=== PATIENT | female | born 1955 | race Caucasian/White ===

== ENCOUNTER → 2017-11-23 14:26 | Outpatient (CLI) | payer OTHER, SELFPAY ==
--- NOTE | 2017-11-23 14:32 | BI_ITS ---
MAMMOGRAPHY - BILATERAL SCREENING 3-D KACY SYNTHESIS REASON FOR EXAM: Female, 62 years old. Bilateral Screening 3-D tomosynthesis PERTINENT HISTORY: No significant family history. TECHNIQUE: 2-D mammograms and 3-D Kacy synthesis of the breast (s) were performed. CAD was performed. COMPARISON: November 08, 2016, November 05, 2015 FINDINGS: The breast composition is composed of scattered fibroglandular density. Scattered benign calcifications are seen. No dense spiculated masses or suspicious microcalcifications are identified. No architectural distortion is identified. There is no skin thickening or retraction. There has been no significant change since the prior study. BI/SCREENING MAMM (CAD), BILAT IMPRESSION: No mammographic signs of malignancy. Routine yearly mammograms recommended. ASSESSMENT CATEGORY: BIRADS Category 2: Benign. A letter regarding these results will be sent to the patient by the facility within 30 days. FOLLOW UP RECOMMENDATION: Yearly follow up mammogram recommended. (A) Approximately 10% of breast cancers are not detected by mammography. A normal mammogram should not delay biopsy of a clinically suspicious abnormality. Electronically Signed: Kadeem No MD at 17:08 EDT , Service support ,
== END ==
PROVIDERS: Family Provider Nurse Practitioner Family; PCP Nurse Practitioner Family; Visit Provider Nurse Practitioner Family
DX: Z12.31 Encounter for screening mammogram for malignant neoplasm of breast (principal)
CPT/HCPCS: 77063; 77067

== ENCOUNTER → 2019-02-18 14:27 | Outpatient (CLI) | payer OTHER, SELFPAY ==
--- NOTE | 2019-02-18 14:31 | BI_ITS ---
MAMMOGRAPHY - BILATERAL SCREENING REASON FOR EXAM: Female, 63 years old. Routine annual screening examination. PERTINENT HISTORY: Sister with breast cancer. Aunt with breast cancer. TECHNIQUE: Digital bilateral breast kacy (3D mammographic acquisition) in the CC and MLO projections. 2-D mediolateral oblique (MLO) and craniocaudad (CC) views of both breasts were obtained. CAD: Full Field Digital Mammography with Computer Added Detection was performed. COMPARISON: Comparison is made with prior study dated November 23, 2017 and November 08, 2016. FINDINGS: Breast Composition: The breasts are extremely dense, which lowers the sensitivity of mammography. There are no dominant masses or suspicious calcifications. Stable 1.3 cm lymph node in the left axillary region. No other significant abnormalities are identified. There has been no significant change since the prior study. BI/SCREEN MAMM (CAD) W/KACY BILAT IMPRESSION: Stable bilateral screening mammogram. Yearly follow-up mammogram recommended. (A) ASSESSMENT CATEGORY: BIRADS Category 2: Benign. A letter regarding these results will be sent to the patient by the facility within 30 days. Approximately 10% of breast cancers are not detected by mammography. A normal mammogram should not delay biopsy of a clinically suspicious abnormality. [id number] Electronically Signed: Jeffrey Landa, at 15:39 EDT , Service support ,
== END ==
PROVIDERS: Family Provider Nurse Practitioner Family; PCP Nurse Practitioner Family; Referring Provider Nurse Practitioner Family; Visit Provider Nurse Practitioner Family
DX: Z12.31 Encounter for screening mammogram for malignant neoplasm of breast (principal)
CPT/HCPCS: 77063; 77067

== ENCOUNTER → 2019-04-03 10:35 | Outpatient (CLI) | payer OTHER, SELFPAY ==
--- NOTE | 2019-04-03 10:46 | BD_ITS ---
STUDY: DUAL ENERGY X-RAY ABSORPTIOMETRY / DXA REASON FOR EXAM: Female, 63 years old. The patient is postmenopausal. Loss of height. TECHNIQUE: Bone Mineral Density (BMD) measurements of lumbar spine and bilateral hips were obtained. COMPARISON: Comparison is made with prior examination of February 28, 2017. FINDINGS: Lumbar Spine (L1-L4): g/cm2 (1.028) / T-score (-1.3) / Z-score (0.1) Findings are suggestive of osteopenia with a low fracture risk. Left Femur Total: g/cm2 (0.794) / T-score (-1.7) / Z-score (-0.6) Left Femoral Neck: g/cm2 (0.806) / T-score (-1.7) / Z-score (-0.3) Right Femur Total: g/cm2 (0.819) / T-score (-1.5) / Z-score (-0.4) Right Femoral Neck: g/cm2 (0.833) / T-score (-1.5) / Z-score (-0.1) The T-Scores on the most recent prior examination were: Lumbar Spine (L1-L4): There has been worsening of bone density since the previous examination. Left Femur Total: which represents a worsening of 10.3%. Right Femur Total: which represents a worsening of 5.1%. BD/Dexa Bone Density Study IMPRESSION: The patient is considered osteopenic as outlined below according to World Demetris Organization (WHO) criteria with a moderate fracture risk. There has been worsening of bone density since the previous examination. Reference Information: The T-score is the number of standard deviations above or below the standard which is normal for young adults at their peak bone mineral density. The World Health Organization (WHO) interprets the T-scores as follows: Above -1 Normal bone density Between -1 and -2.5 Osteopenia Equal to / or below -2.5 Osteoporosis As a practical clinical guideline, osteopenia may be graded as follows: Mild -1 through -1.5 Moderate -1.6 through -2.0 Severe -2.1 through -2.4 The Z-score is the number of standard deviations above or below age-matched controls. A Z-score of less than -1.5 would be considered abnormal. References: 1. NIH Osteoporosis and Related Bone Diseases http://www.osteo.org 2. International Society for Clinical Densitometry http://www.iscd.org 3. National Osteoporosis Foundation http://www.nof.org Electronically Signed: Jeffrey Landa, at 11:21 EDT , Service support ,
== END ==
PROVIDERS: Family Provider Nurse Practitioner Family; PCP Nurse Practitioner Family; Referring Provider Nurse Practitioner Family; Visit Provider Nurse Practitioner Family
DX: Z78.0 Asymptomatic menopausal state (principal)
CPT/HCPCS: 77080

== ENCOUNTER 2020-03-10 19:18 | Emergency (ER) | payer OTHER, SELFPAY ==
[2020-03-10 19:18] VITALS: BP 170/100; PULSE 65; RESP 16; TEMP 36.3; O2SAT 97; BMI 22.6
--- NOTE | 2020-03-10 19:29 | CT_ITS ---
STUDY: CT BRAIN WITHOUT CONTRAST REASON FOR EXAM: Female, 64 years old. VALENTE TODAY/NAUSEA/SPITTING UP BLOOD RADIATION DOSAGE (If Supplied By Facility): CTDIvol = ( 44.99 ) mGy, DLP = ( 745.49 ) mGycm TECHNIQUE: Transaxial CT imaging of the brain was performed without administration of intravenous contrast material. Individualized dose optimization techniques were used for this CT. COMPARISON: No relevant priors. FINDINGS: Normal soft tissue structures. Normal calvarium. Normal size ventricles and extra-axial spaces for the patient''s age. There are areas of decreased attenuation within the white matter tracts of the supratentorial brain, consistent with microvascular disease changes. Normal age-related changes of the basal ganglia. Normal brainstem. Normal cerebellum. There is no intracranial hemorrhage. There are no findings of an acute ischemic infarction. Normal visualized paranasal sinuses. CT/Brain/Head without Contrast IMPRESSION: No CT evidence of acute infarct or hemorrhage. If there is clinical concern for hyperacute ischemia that is not evident by CT, MRI should be considered if possible. Electronically Signed: Leeroy Kim MD at 20:08 EDT Tel , Service support ,
[2020-03-10 19:49] LABS: Absolute Lymphocyte Count 1.76 X10^3/uL (0.83-4.51); Absolute Neutrophil Count 4.5 X10^3/uL (2.0-7.7); Basophil# 0.07 X10^3/uL; Eosinophil# 0.26 X10^3/uL; Eosinophils% 3.6 % (0-5); Hematocrit 40.4 % (37-47); Hemoglobin 13.6 g/dL (12.0-15.0); Lymphocyte # 1.76 X10^3/ul (4.0); Lymphocyte % 24.4 % (19-41); Mean Corp Hgb Conc 33.7 g/dL (32-36); Mean Corpuscular Hgb 31.8 pg (27.0-32.0); Mean Corpuscular Volume 94.4 fL (81-99); Mean Platelet Vol. 9.7 fl (6.2-12.0); Monocyte# 0.66 X10^3/uL; Monocyte% 9.1 % (0-10); NRBC Flagged by Analyzer 0 % (0-5); Neutrophil # 4.46 X10^3/uL (2.7-7.7); Neutrophil % 61.8 % (47-70); Platelet Count 216 K/mm3 (150-450); RBC Distribution Width CV 12.3 % (11.6-14.6); RBC Distribution Width SD 42.7 fl (35.1-43.9); Red Blood Count 4.28 M/mm3 (4.2-5.4); White Blood Count 7.2 K/mm3 (4.4-11.0)
[2020-03-10] MEDS: Ondansetron 4 MG/2 ML Vial IV (19:51)
[2020-03-10 20:07] LABS: ALB/GLOB Ratio 1.2 RATIO (0.9-2.4); AST(SGOT) 15 U/L (15-37); Alanine Aminotransfer ALT/SGPT 20 U/L (13-56); Albumin, Serum 3.5 g/dL (3.2-5.0); Alkaline Phosphatase 81 U/L (45-117); Anion Gap 2 (5-15); BUN 13 mg/dL (7-18); BUN/Creat Ratio 12.6 RATIO (10-20); Calcium,Total 9.5 mg/dL (8.5-10.1); Chloride 109 mmol/L (98-107); Creatinine, Serum 1.03 mg/dL (0.55-1.02); EST Glomerular Filtration Rate 57 mL/min (>60); Est Glom Filt Rate - Afr Amer 70 mL/min (>60); Estimated Creatinine Clearance 52.34 ml/min; Globulin 2.9 g/dL (2.2-4.2); Glucose 115 mg/dL (74-106); Potassium 3.9 mmol/L (3.5-5.1); Protein, Total 6.4 g/dL (6.4-8.2); Sodium Level 142 mmol/L (136-145)
--- NOTE | 2020-03-10 20:32 | ED.DCSUM_ITS ---
History of Present Illness Chief Complaint: Headache Informant: Patient Onset: Today Context: Gradual Onset Timing: Intermittent Current Severity: Moderate Maximum Severity: Moderate Narrative: Patient is an otherwise healthy 64-year-old female who presents to the emergency department with facial congestion, headache, and one episode of spitting up blood. She states that today, she had a frontal headache. She states that she is been dealing with some allergies for the past 2 days. She is not had fever or chills. She states that she was having a lot of drainage and felt nauseated. She states she went to the bathroom as if she was going to vomit, but then spit up blood. She describes it as bright red. There was no vomiting. She states it was one time. She said no change in bowel habits. She did have colonoscopy and endoscopy 7 years ago which were unremarkable. Prior similar symptoms: No Recent Illness/Hospitalization: No Past Medical History - Allergies and Home Meds Allergies/Adverse Reactions: Allergies nickel [Nickel] Allergy (Verified 01/15/14 11:24) Rash prednisone Allergy (Verified 01/15/14 11:24) Unknown ibuprofen Adverse Reaction (Verified 01/28/14 07:00) Other RECOMMENDED NOT TO TAKE DUE TO ONLY HAVING 1 KIDNEY Primary Care Physician: Aníbal Larry OCCUPATIONAL THERAPY INSTRUCTOR, OCCUPATIONAL THERAPY INSTRUCTOR-C [Primary Care Provider] - Prior records reviewed: Yes Past Medical History: - - GERD Surgical History: noncontributory Smoking Status: Former smoker Review of Systems General: Denies: Chills, Fever, Sweats Eyes: Denies: Visual changes - bilaterally, Diplopia ENT: Reports: Rhinorrhea. Denies: Sore throat Cardiovascular: Denies: Chest pain, Palpitations Respiratory: Denies: Dyspnea, Cough, Dyspnea on exertion Gastrointestinal: Reports: Nausea. Denies: Abdominal pain, Vomiting, Diarrhea, Melena, Hematochezia Genitourinary: Denies: Dysuria, Hematuria, Frequency Musculoskeletal: Denies: Back pain, Extremity Pain Skin: Denies: Rash, Wounds Neurological: Denies: Headache, Weakness, Numbness Physical Exam Vital Signs/Narrative: Vital Signs Temp Pulse Resp BP Pulse Ox 03/10/20 19:18 97.4 F L 65 16 170/100 H 97 Inital Vital Signs reviewed: Yes General: Well nourished, Well developed, No Acute Distress Head: Normocephalic, Atraumatic Eyes: Perrl, EOMI ENT: Moist mucous membranes, No rhinorrhea, Nasal congestion, - - Bilateral turbinates are erythematous. There is stigmata of recent bleeding from the left. There is no posterior bleeding. Neck: Supple, Nontender Cardiovascular: Regular rate, Regular rhythm, No murmurs Respiratory: No distress, CTA bilaterally, Chest nontender Abdomen: Soft, Nontender, Nondistended, Normal bowel sounds Back: Nontender, Normal Inspection Extremities: Nontender, No edema Skin: Normal color, No rash Neurological: Alert, Oriented x3, Cranial nerves II-XII grossly intact, Normal Strength, Normal Sensation Psychological: Normal affect, Normal Mood Diagnostic/Tx/Re-eval Clinical Impression(s) from Imaging Studies Brain CT 03/10/20 19:29 IMPRESSION: No CT evidence of acute infarct or hemorrhage. If there is clinical concern for hyperacute ischemia that is not evident by CT, MRI should be considered if possible. Electronically Signed: Leeroy Kim MD at 20:08 EDT Tel , Service support , Abnormal Lab Results 03/10/20 03/10/20 19:40 19:40 WBC 7.2 RBC 4.28 Hgb 13.6 Hct 40.4 MCV 94.4 MCH 31.8 MCHC 33.7 RDW Std Deviation 42.7 RDW Coeff of Caro 12.3 Plt Count 216 MPV 9.7 Immature Gran % (Auto) 0.100 Neut % (Auto) 61.8 Lymph % (Auto) 24.4 Reynolds % (Auto) 9.1 Eos % (Auto) 3.6 Baso % (Auto) 1.0 Absolute Neuts (auto) 4.5 Absolute Lymphs (auto) 1.76 Nucleated RBC % 0 Sodium 142 Potassium 3.9 Chloride 109 H Carbon Dioxide 31.0 Anion Gap 2 L BUN 13 Creatinine 1.03 H Estim Creat Clear Calc 52.34 Est GFR (MDRD) Af Amer 70 Est GFR (MDRD) Non-Af 57 L BUN/Creatinine Ratio 12.6 Glucose 115 H Calcium 9.5 Total Bilirubin 0.30 AST 15 ALT 20 Alkaline Phosphatase 81 Total Protein 6.4 Albumin 3.5 Globulin 2.9 Albumin/Globulin Ratio 1.2 - Medical Decision Making The patient presents with frontal headache, nausea, and one episode of spitting up blood. My suspicion is this is likely from the oropharynx. She does have stigmata of recent bleeding from the left nares. She has not had similar headache, I did obtain noncontrast head CT. This was unremarkable. The patient has no further episodes. Her labs are unremarkable. She is feeling improved. At this point, she will continue her antihistamines. I will add Zofran for nausea control. She was counseled on concerning symptoms and reasons to return. She will be discharged home. Impression 1. Sinus headache 2. Epistaxis resolved ED Disposition - Plan for ED Patient: Instructions: Nosebleed, ED Headache Sinus Prescriptions: Prednisone [Deltasone] 40 mg PO DAILY #10 tab Prescription Printed Ondansetron [Zofran Odt] 4 mg PO Q8H PRN PRN #10 tab PRN Reason: Nausea Prescription Printed Referrals: Aníbal Larry NP, OCCUPATIONAL THERAPY INSTRUCTOR-C [Primary Care Provider] -
[2020-03-10 20:48] VITALS: BP 140/70; PULSE 55; RESP 16; O2SAT 98
== END 2020-03-10 20:49 | disposition home or self-care (01) ==
LOC: ED 19:43
PROVIDERS: Emergency Provider Emergency Medicine; PCP Nurse Practitioner Family
DX: R51 Headache (principal); R04.0 Epistaxis; K21.9 Gastro-esophageal reflux disease without esophagitis; Z87.891 Personal history of nicotine dependence; Z88.6 Allergy status to analgesic agent
CPT/HCPCS: 70450; 80053; 85025; 99283; J7040; J2405

== ENCOUNTER → 2020-03-20 08:32 | Outpatient (CLI) | payer OTHER, SELFPAY ==
[2020-03-10 19:18] VITALS: BMI 22.6
[2020-03-20 10:18] LABS: ALB/GLOB Ratio 1.3 RATIO (0.9-2.4); AST(SGOT) 17 U/L (15-37); Alanine Aminotransfer ALT/SGPT 24 U/L (13-56); Albumin, Serum 3.9 g/dL (3.2-5.0); Alkaline Phosphatase 77 U/L (45-117); Anion Gap 5 (5-15); BUN 16 mg/dL (7-18); BUN/Creat Ratio 15.8 RATIO (10-20); Calcium,Total 9.2 mg/dL (8.5-10.1); Chloride 105 mmol/L (98-107); Cholesterol 161 mg/dL (200); Creatinine, Serum 1.01 mg/dL (0.55-1.02); EST Glomerular Filtration Rate 59 mL/min (>60); Est Glom Filt Rate - Afr Amer 71 mL/min (>60); Globulin 2.9 g/dL (2.2-4.2); Glucose 92 mg/dL (74-106); High Density Lipoprotein 74 mg/dL; Potassium 3.9 mmol/L (3.5-5.1); Protein, Total 6.8 g/dL (6.4-8.2); Sodium Level 138 mmol/L (136-145); Triglycerides 88 mg/dL; Very Low Density Lipoprotein 18 mg/dL (5-40)
== END ==
PROVIDERS: PCP Nurse Practitioner Family; Referring Provider Nurse Practitioner Family; Visit Provider Nurse Practitioner Family
DX: E78.5 Hyperlipidemia, unspecified (principal); N28.9 Disorder of kidney and ureter, unspecified; E55.9 Vitamin D deficiency, unspecified
CPT/HCPCS: 36415; 80053; 80061; 82306

== ENCOUNTER → 2020-03-27 11:47 | Outpatient (CLI) | payer OTHER, SELFPAY ==
[2020-03-10 19:18] VITALS: BMI 22.6
[2020-03-27 15:47] LABS: PTHIN 37.1 pg/mL (18.4-80.1)
[2020-03-27 15:52] LABS: T4 Free Direct 1.18 ng/dL (0.76-1.46); Thyroid Stim Hormone (TSH) 0.94 uIU/mL (0.358-3.74)
== END ==
PROVIDERS: PCP Nurse Practitioner Family; Referring Provider Nurse Practitioner Family; Visit Provider Nurse Practitioner Family
DX: I10 Essential (primary) hypertension (principal)
CPT/HCPCS: 36415; 83970; 84439; 84443

== ENCOUNTER → 2020-04-03 09:48 | Outpatient (CLI) | payer OTHER, SELFPAY ==
[2020-03-10 19:18] VITALS: BMI 22.6
--- NOTE | 2020-04-03 09:57 | ECHOCS_ITS ---
Reason For Study: Palpitations Procedure This was a 2D Doppler, Color Flow transthoracic echocardiogram. Contrast injection was performed. Exam performed in department. Left Ventricle Normal LV size. The estimated ejection fraction is 55 %. No evidence for diastolic dysfunction. No regional wall motion abnormalities noted. Right Ventricle Normal RV size. Normal systolic function. Atria Normal left atrium. Normal right atrium. No doppler evidence for ASD. Mitral Valve Mild mitral valve prolapse, anterior leaflet. There is no mitral valve stenosis. Trivial mitral valve insufficiency. Tricuspid Valve There is no tricuspid stenosis. Trivial tricuspid valve insufficiency. Pulmonary artery systolic pressure is 20-25 mmHg. Aortic Valve Trisinus/trileaflet aortic valve. There is no aortic stenosis. No aortic valve insufficiency. Pulmonic Valve There is no pulmonic valvular stenosis. Trivial pulmonic valve insufficiency. Great Vessels Normal aortic root. Pericardium/Pleural No pericardial effusion. Medication 22 gauge I.V. with prn adaptor inserted into right arm. Diluted definity 4ml given slow IV push to enhance endocardial definition. Performed a rapid injection of agitated mix of 9 cc saline and 1cc air to assess for atrial septal defect. MMode/2D Measurements & Calculations LVIDd: 4.7 cm IVSd: 0.97 cm Ao root diam: 3.4 cm LVIDs: 3.4 cm LVPWd: 0.85 cm LA dimension: 3.3 cm RVDd: 3.1 cm FS: 26.9 % LAV(MOD-bp): 33.0 ml LVAd ap4: 28.7 cm2 SV(MOD-sp4): 48.2 ml LAV(MOD-bp) Indexed: 19.0 ml/m2 EDV(MOD-sp4): 90.5 ml LAV(MOD-sp2): 26.5 ml EDV(sp4-el): 93.5 ml LAV(MOD-sp4): 38.7 ml LVAs ap4: 17.4 cm2 ESV(MOD-sp4): 42.2 ml ESV(sp4-el): 42.8 ml EF(MOD-sp4): 53.3 % EF(sp4-el): 54.2 % SV(sp4-el): 50.7 ml LA A4 area: 15.3 cm2 RA A4 area: 13.7 cm2 Time Measurements MV dec time: 0.33 sec Doppler Measurements & Calculations MV E max onur: 46.1 cm/sec Lat Peak E' Onur: 4.9 cm/sec Med Peak E' Onur: 5.5 cm/sec MV A max onur: 93.2 cm/sec E/E' lat: 9.3 E/E' med: 8.4 MV E/A: 0.49 MV V2 max: 102.5 cm/sec MV P1/2t max onur: 51.2 cm/sec Ao V2 max: 86.8 cm/sec MV max P.2 mmHg MV P1/2t: 110.1 msec Ao max P.0 mmHg MV V2 mean: 41.1 cm/sec MV mean P.87 mmHg MV dec slope: 136.3 cm/sec2 MV V2 VTI: 25.2 cm MVA(P1/2t): 2.0 cm2 LV V1 max: 75.1 cm/sec MR max onur: 686.0 cm/sec PA V2 max: 106.9 cm/sec LV V1 max P.3 mmHg MR max P.3 mmHg MR mean onur: 548.2 cm/sec MR mean P.4 mmHg MR VTI: 236.1 cm TR max onur: 198.8 cm/sec TR max P.8 mmHg Interpretation Summary The estimated ejection fraction is 55 %. No evidence for diastolic dysfunction. Trivial mitral valve insufficiency. Mild mitral valve prolapse, anterior leaflet Ordering Physician: Aníbal Larry Referring Physician: Aníbal Larry Performed By: Elgin Alonso RCS
== END ==
PROVIDERS: PCP Nurse Practitioner Family; Referring Provider Nurse Practitioner Family; Visit Provider Nurse Practitioner Family
DX: R00.2 Palpitations (principal); I34.0 Nonrheumatic mitral (valve) insufficiency; R01.1 Cardiac murmur, unspecified
CPT/HCPCS: 93306; Q9957; A4216; C8929

== ENCOUNTER → 2021-04-06 10:19 | Outpatient (CLI) | payer OTHER, SELFPAY ==
--- NOTE | 2021-04-06 10:22 | BI_ITS ---
MAMMOGRAPHY - BILATERAL SCREENING REASON FOR EXAM: Female, 65 years old. Routine annual screening examination. PERTINENT HISTORY: Sister with breast cancer. Aunt with breast cancer. TECHNIQUE: Digital bilateral breast kacy (3D mammographic acquisition) in the CC and MLO projections. 2-D mediolateral oblique (MLO) and craniocaudad (CC) views of both breasts were obtained. CAD: Full Field Digital Mammography with Computer Added Detection was performed. COMPARISON: Comparison is made with prior study 02/18/2019 and 11/23/2017. FINDINGS: Breast Composition: The breasts are extremely dense, which lowers the sensitivity of mammography. There are no dominant masses or suspicious calcifications. Stable lymph node in the left axilla. No other significant abnormalities are identified. There has been no significant change since the prior study. BI/SCRN MAMM (CAD)W/KACY BILAT IMPRESSION: Stable bilateral screening mammogram. Yearly follow-up mammogram recommended. (A) ASSESSMENT CATEGORY: BIRADS Category 2: Benign. A letter regarding these results will be sent to the patient by the facility within 30 days. Approximately 10% of breast cancers are not detected by mammography. A normal mammogram should not delay biopsy of a clinically suspicious abnormality. [id number] Electronically Signed: Jeffrey Landa MD at 13:18 EDT , Service support ,
--- NOTE | 2021-04-06 10:25 | BD_ITS ---
STUDY: DUAL ENERGY X-RAY ABSORPTIOMETRY / DXA REASON FOR EXAM: Female, 65 years old. 733.00OsteoporosisBONE DENSITY REASON FOR EXAM -- SCREENING TECHNIQUE: Bone Mineral Density (BMD) measurements of lumbar spine and bilateral hips were obtained. COMPARISON: Comparison is made with prior study dated 04/03/2019. FINDINGS: Lumbar Spine (L1-L4): g/cm2 (0.886) / T-score (-1.6) / Z-score (0.2) Findings are suggestive of osteopenia with a moderate fracture risk. Left Femur Total: g/cm2 (0.753) / T-score (-1.6) / Z-score (-0.4) Left Femoral Neck: g/cm2 (0.658) / T-score (-1.7) / Z-score (-0.2) Right Femur Total: g/cm2 (0.780) / T-score (-1.3) / Z-score (-0.1) Right Femoral Neck: g/cm2 (0.678) / T-score (-1.5) / Z-score (-0.1) The T-Scores on the most recent prior examination were: Lumbar Spine (L1-L4): There has been worsening of bone density since the previous examination. Left Femur Total: which represents an improvement of 2.5%. Right Femur Total: which represents an improvement of 2.9%. BD/Dexa Bone Density Study IMPRESSION: The patient is considered osteopenic as outlined below according to World Demetris Organization (WHO) criteria with a moderate fracture risk. There has been improvement of bone density since the previous examination. Reference Information: The T-score is the number of standard deviations above or below the standard which is normal for young adults at their peak bone mineral density. The World Health Organization (WHO) interprets the T-scores as follows: Above -1 Normal bone density Between -1 and -2.5 Osteopenia Equal to / or below -2.5 Osteoporosis As a practical clinical guideline, osteopenia may be graded as follows: Mild -1 through -1.5 Moderate -1.6 through -2.0 Severe -2.1 through -2.4 The Z-score is the number of standard deviations above or below age-matched controls. A Z-score of less than -1.5 would be considered abnormal. References: 1. NIH Osteoporosis and Related Bone Diseases www osteo.org 2. International Society for Clinical Densitometry www iscd.org 3. National Osteoporosis Foundation www nof.org Electronically Signed: Jeffrey Landa MD at 15:45 EDT , Service support ,
== END ==
PROVIDERS: PCP Nurse Practitioner Family; Referring Provider Nurse Practitioner Family; Visit Provider Nurse Practitioner Family
DX: Z12.31 Encounter for screening mammogram for malignant neoplasm of breast (principal); M81.0 Age-related osteoporosis without current pathological fracture
CPT/HCPCS: 77063; 77067; 77080

== ENCOUNTER → 2022-04-14 | Outpatient (CLI) | payer MEDICARE, OTHER, SELFPAY ==
--- NOTE | 2022-04-14 12:06 | BI_ITS ---
MAMMOGRAPHY - BILATERAL SCREENING 3-D TOMOSYNTHESIS REASON FOR EXAM: Female, 66 years old. Routine screening PERTINENT HISTORY: Sister and aunt with breast cancer.. TECHNIQUE: 2-D mammograms and 3-D Tomosynthesis of the breast (s) were performed. CAD was performed. COMPARISON: 04/06/2021 FINDINGS: The breast composition is heterogeneously dense that can obscure small breast masses. Scattered benign calcifications are seen. No dense spiculated masses or suspicious microcalcifications are identified. No architectural distortion is identified. There is no skin thickening or retraction. There has been no significant change since the prior study. BI/SCRN MAMM (CAD)W/KACY BILAT IMPRESSION: No mammographic signs of malignancy. Routine yearly mammograms recommended. ASSESSMENT CATEGORY: BIRADS Category 2: Benign. A letter regarding these results will be sent to the patient by the facility within 30 days. FOLLOW UP RECOMMENDATION: Yearly follow up mammogram recommended. (A) Approximately 10% of breast cancers are not detected by mammography. A normal mammogram should not delay biopsy of a clinically suspicious abnormality. Electronically Signed: Markos Whiteside MD at 12:54 EDT ,
== END | disposition home or self-care (01) ==
LOC: OPBI 12:04
PROVIDERS: PCP Nurse Practitioner Family; Visit Provider Nurse Practitioner Family
DX: Z12.31 Encounter for screening mammogram for malignant neoplasm of breast (principal); Z80.3 Family history of malignant neoplasm of breast
CPT/HCPCS: 77063; 77067

== ENCOUNTER → 2023-05-11 | Outpatient (CLI) | payer MEDICARE, OTHER, SELFPAY ==
--- NOTE | 2023-05-11 12:28 | BI_ITS ---
MAMMOGRAPHY - BILATERAL SCREENING REASON FOR EXAM: Female, 67 years old. Routine annual screening examination. PERTINENT HISTORY: Sister with breast cancer. Aunt with breast cancer. History of prior left breast aspiration as well as left breast biopsy. TECHNIQUE: Digital bilateral breast kacy (3D mammographic acquisition) in the CC and MLO projections. 2-D mediolateral oblique (MLO) and craniocaudad (CC) views of both breasts were obtained. CAD: Full Field Digital Mammography with Computer Added Detection was performed. COMPARISON: Comparison is made with prior study April 14, 2022 and April 06, 2021. FINDINGS: Breast Composition: The breasts are extremely dense, which lowers the sensitivity of mammography. There are no dominant masses or suspicious calcifications. Stable 1.6 cm left axillary lymph node. No other significant abnormalities are identified. There has been no significant change since the prior study. BI/SCRN MAMM (CAD)W/KACY BILAT IMPRESSION: Stable bilateral screening mammogram. Yearly follow-up mammogram recommended. (A) ASSESSMENT CATEGORY: BIRADS Category 2: Benign. A letter regarding these results will be sent to the patient by the facility within 30 days. Approximately 10% of breast cancers are not detected by mammography. A normal mammogram should not delay biopsy of a clinically suspicious abnormality. [id number] Electronically Signed: Jeffrey Landa MD at 14:59 EST ,
--- NOTE | 2023-05-11 12:30 | BD_ITS ---
STUDY: DUAL ENERGY X-RAY ABSORPTIOMETRY / DXA REASON FOR EXAM: Female, 67 years old. [id number] TECHNIQUE: Bone Mineral Density (BMD) measurements of lumbar spine and bilateral hips were obtained. COMPARISON: Comparison is made with prior study April 06, 2021. FINDINGS: Lumbar Spine (L1-L4): g/cm2 (0.976) / T-score (-0.7) / Z-score (1.2) Findings are suggestive of normal bone density with a low fracture risk. Left Femur Total: g/cm2 (0.774) / T-score (-1.4) / Z-score (-0.1) Left Femoral Neck: g/cm2 (0.683) / T-score (-1.5) / Z-score (0.1) Right Femur Total: g/cm2 (0.772) / T-score (-1.4) / Z-score (-0.1) Right Femoral Neck: g/cm2 (0.736) / T-score (-1.0) / Z-score (0.6) The T-Scores on the most recent prior examination were: Lumbar Spine (L1-L4): There has been improvement of bone density since the previous examination. Left Femur Total: which represents an improvement of 2.8%. Right Femur Total: which represents a worsening of 1.1%. BD/Dexa Bone Density Study IMPRESSION: The patient is considered osteopenic as outlined below according to World Demetris Organization (WHO) criteria with a low fracture risk. There has been improvement of bone density since the previous examination. Reference Information: The T-score is the number of standard deviations above or below the standard which is normal for young adults at their peak bone mineral density. The World Health Organization (WHO) interprets the T-scores as follows: Above -1 Normal bone density Between -1 and -2.5 Osteopenia Equal to / or below -2.5 Osteoporosis As a practical clinical guideline, osteopenia may be graded as follows: Mild -1 through -1.5 Moderate -1.6 through -2.0 Severe -2.1 through -2.4 The Z-score is the number of standard deviations above or below age-matched controls. A Z-score of less than -1.5 would be considered abnormal. References: 1. NIH Osteoporosis and Related Bone Diseases www osteo.org 2. International Society for Clinical Densitometry www iscd.org 3. National Osteoporosis Foundation www nof.org Electronically Signed: Jeffrey Landa MD at 15:17 EST ,
== END | disposition home or self-care (01) ==
LOC: OPBD 12:26
PROVIDERS: PCP Nurse Practitioner Family; Referring Provider Nurse Practitioner Family; Visit Provider Nurse Practitioner Family
DX: Z12.31 Encounter for screening mammogram for malignant neoplasm of breast (principal); Z78.0 Asymptomatic menopausal state; Z80.3 Family history of malignant neoplasm of breast
CPT/HCPCS: 77063; 77067; 77080

== ENCOUNTER → 2023-11-07 | Outpatient (CLI) | payer MEDICARE, OTHER, SELFPAY ==
--- NOTE | 2023-11-07 09:53 | ECHOD_ITS ---
Reason For Study: MURMUR Procedure This was a 2D Doppler, Color Flow transthoracic echocardiogram. Exam performed in department. Left Ventricle Normal LV size. Left ventricular systolic function is normal. The estimated ejection fraction is 60 %. Normal diastololic function. No regional wall motion abnormalities noted. Right Ventricle Normal RV size. Normal systolic function. Atria The left and right atria are normal. Mitral Valve Mild mitral valve prolapse. Mild (1+) mitral valve insufficiency. Tricuspid Valve Normal tricuspid valve. Mild (1+) tricuspid valve insufficiency. Pulmonary artery systolic pressure is 25 mmHg. Aortic Valve Trisinus/trileaflet aortic valve. Pulmonic Valve Normal pulmonic valve. Trivial pulmonic valve insufficiency. Great Vessels Normal aortic root. Pericardium/Pleural Trivial pericardial effusion. MMode/2D Measurements & Calculations LVIDd: 4.8 cm IVSd: 0.89 cm Ao root diam: 3.6 cm LVIDs: 3.5 cm LVPWd: 0.97 cm FS: 28.1 % LAV(MOD-bp): 47.6 ml LVAd ap4: 25.5 cm2 LVAd ap2: 25.5 cm2 LAV(MOD-bp) Indexed: 27.5 ml/m2 LVLd ap4: 7.7 cm LVLd ap2: 7.7 cm LAV(MOD-sp2): 45.4 ml EDV(MOD-sp4): 69.0 ml EDV(MOD-sp2): 70.6 ml LAV(MOD-sp4): 45.5 ml EDV(sp4-el): 71.6 ml EDV(sp2-el): 71.8 ml LVAs ap4: 14.0 cm2 LVAs ap2: 14.3 cm2 LVLs ap4: 6.2 cm LVLs ap2: 7.0 cm ESV(MOD-sp4): 26.4 ml ESV(MOD-sp2): 24.2 ml ESV(sp4-el): 26.5 ml ESV(sp2-el): 25.0 ml EF(MOD-sp4): 61.8 % EF(MOD-sp2): 65.7 % EF(sp4-el): 63.0 % SV(MOD-sp4): 42.7 ml SV(MOD-sp2): 46.4 ml SV(sp4-el): 45.1 ml LA dimension(2D): 3.3 cm LA A4 area: 17.0 cm2 RA A4 area: 14.2 cm2 TAPSE: 2.4 cm Time Measurements MV dec time: 0.25 sec Doppler Measurements & Calculations MV E max onur: 57.4 cm/sec Lat Peak E' Onur: 7.3 cm/sec Med Peak E' Onur: 6.2 cm/sec MV A max onur: 73.6 cm/sec E/E' lat: 7.9 E/E' med: 9.2 MV E/A: 0.78 MV V2 max: 88.8 cm/sec MV P1/2t max onur: 66.6 cm/sec Ao V2 max: 97.4 cm/sec MV max P.2 mmHg MV P1/2t: 105.8 msec Ao max P.8 mmHg MV V2 mean: 46.6 cm/sec MV dec slope: 184.4 cm/sec2 Ao V2 mean: 66.3 cm/sec MV mean P.00 mmHg Ao mean P.0 mmHg MV V2 VTI: 29.4 cm MVA(P1/2t): 2.1 cm2 Ao V2 VTI: 25.3 cm AV (velocity ratio): 0.81 LV V1 max: 89.4 cm/sec MR max onur: 579.0 cm/sec PA V2 max: 65.1 cm/sec LV V1 max P.2 mmHg MR max P.1 mmHg PA V2 mean: 45.0 cm/sec LV V1 mean P.8 mmHg MR mean onur: 510.5 cm/sec LV V1 mean: 63.3 cm/sec MR mean P.5 mmHg LV V1 VTI: 20.4 cm MR VTI: 226.9 cm TR max onur: 234.5 cm/sec TR max P.0 mmHg ECHO/Echo Complete Interpretation Summary The estimated ejection fraction is 60 %. Normal diastololic function. Mild mitral valve prolapse. Mild (1+) mitral valve insufficiency. Mild (1+) tricuspid valve insufficiency. Ordering Physician: Aníbal Larry Referring Physician: Aníbal Larry Performed By: Kat Miller, MARGUERITE, RVT
== END | disposition home or self-care (01) ==
LOC: CVS 09:48
PROVIDERS: PCP Nurse Practitioner Family; Referring Provider Nurse Practitioner Family; Visit Provider Nurse Practitioner Family
DX: I34.1 Nonrheumatic mitral (valve) prolapse (principal); R01.1 Cardiac murmur, unspecified; I10 Essential (primary) hypertension
CPT/HCPCS: 93306

== ENCOUNTER → 2024-05-14 | Outpatient (CLI) | payer MEDICARE, OTHER, SELFPAY ==
--- NOTE | 2024-05-14 09:37 | BI_ITS ---
MAMMOGRAPHY - BILATERAL SCREENING REASON FOR EXAM: Female, 68 years old. Routine annual screening examination. PERTINENT HISTORY: Sister with breast cancer. Aunt with breast cancer. History of prior left breast biopsy. TECHNIQUE: Digital bilateral breast kacy (3D mammographic acquisition) in the CC and MLO projections. 2-D mediolateral oblique (MLO) and craniocaudad (CC) views of both breasts were obtained. CAD: Full Field Digital Mammography with Computer Added Detection was performed. COMPARISON: Comparison is made with prior study May 11, 2023 and April 14, 2022. FINDINGS: Breast Composition: The breasts are extremely dense, which lowers the sensitivity of mammography. There are no dominant masses or suspicious calcifications. Stable 1.6 cm well-defined nodule in the left axilla suggestive of a small lymph node. No other significant abnormalities are identified. There has been no significant change since the prior study. BI/SCRN MAMM (CAD)W/KACY BILAT IMPRESSION: Stable bilateral screening mammogram. Yearly follow-up mammogram recommended. (A) ASSESSMENT CATEGORY: BIRADS Category 2: Benign. A letter regarding these results will be sent to the patient by the facility within 30 days. Approximately 10% of breast cancers are not detected by mammography. A normal mammogram should not delay biopsy of a clinically suspicious abnormality. [id number] Electronically Signed: Jeffrey Landa MD at 11:01 EST ,
== END | disposition home or self-care (01) ==
LOC: OPBI 09:33
PROVIDERS: PCP Nurse Practitioner Family; Referring Provider Nurse Practitioner Family; Visit Provider Nurse Practitioner Family
DX: Z12.31 Encounter for screening mammogram for malignant neoplasm of breast (principal); Z80.3 Family history of malignant neoplasm of breast
CPT/HCPCS: 77063; 77067

== ENCOUNTER → 2025-05-15 | Outpatient (CLI) | payer MEDICARE, OTHER, SELFPAY ==
--- NOTE | 2025-05-15 08:24 | BI_ITS ---
EXAM: SCRN MAMM (CAD)W/KACY BILAT DATE: 05/15/2025 CLINICAL HISTORY: F, Age 69 y/o , SCREENING Sister with breast cancer. Aunt with breast cancer. TECHNIQUE: Procedure Code: [id number] Modality: MG Procedure: SCRN MAMM (CAD)W/KACY BILAT COMPARISON: Prior exam(s) dated May 14, 2024.. FINDINGS: TISSUE DENSITY: The breasts are extremely dense, which lowers the sensitivity of mammography. Bilateral Breast Mammographic Findings: No significant masses, calcifications or other abnormalities are identified. Stable 1.6 cm rounded nodular density in the left axilla suggestive of a small lymph node. No suspicious masses, areas of developing architectural distortion, or suspicious calcifications. There has been no significant interval change. BI/SCRN MAMM (CAD)W/KACY BILAT IMPRESSION: Stable bilateral screening mammogram. OVERALL FINAL ASSESSMENT BI-RADS 2: BENIGN RECOMMENDATION: Routine annual follow-up in 1 Year Additional Recommendation none A letter with findings and recommendations will be mailed to the patient. Reading Location: [id number]
--- NOTE | 2025-05-15 08:24 | BD_ITS ---
PROCEDURE: DEXA BONE DENSITY STUDY 05/15/2025 REASON FOR EXAM: F, age 69 y/o . Postmenopausal. TECHNIQUE: Procedure Code: BDDBD Modality: DX Procedure: DEXA BONE DENSITY STUDY COMPARISON: April 03, 2019. FINDINGS: BMD and T-SCORES Lumbar spine: 0.951 g/cm2, T-score -0.6 Levels: L1 through L4 Change from prior: Improvement of 7.3%. Left femoral neck: 0.637 g/cm2, T-score -1.9 Femoral neck comparison data not recommended for monitoring change. Left total hip: 0.732 g/cm2, T-score -1.7 Change from prior: Loss of 5.4%. Right femoral neck: 0.699 g/cm2, T-score -1.4 Femoral neck comparison data not recommended for monitoring change. Right total hip: 0.746 g/cm2, T-score -1.2 Change from prior: Loss of 3.3%. The World Health Organization has defined the following categories based on bone density: Normal bone density: T-score equal to or greater than -1.0 Osteopenia: T-score between -1.0 and -2.5 Osteoporosis: T-score equal to or less than -2.5 FRAX (or Comparable) Fracture Risk Assessment: 10 Year Probability of Fracture: Major Osteoporotic Fracture: 17% Hip Fracture: 2.8% (Note: FRAX is not to be reported in setting of normal range bone density, osteoporosis on DEXA, known history of osteoporosis, prior osteoporotic hip or vertebral fracture, or for any patient undergoing pharmacological treatment for bone loss.) The National Osteoporosis Foundation (NOF) recommends pharmacological treatment for patients with a FRAX 10-year risk of 3% or higher for a hip fracture, or 20% or higher for a major osteoporotic fracture, to prevent osteoporosis and reduce fracture risk. The patient does meet the pharmacological treatment recommendations for prevention of osteoporosis. BD/Dexa Bone Density Study IMPRESSION: OSTEOPENIA. Recommend follow-up as clinically warranted. Reading Location: [id number]
== END | disposition home or self-care (01) ==
LOC: OPBD 08:21
PROVIDERS: PCP Nurse Practitioner Family; Referring Provider Nurse Practitioner Family; Visit Provider Nurse Practitioner Family
DX: Z78.0 Asymptomatic menopausal state (principal); Z12.31 Encounter for screening mammogram for malignant neoplasm of breast; M81.0 Age-related osteoporosis without current pathological fracture
CPT/HCPCS: 77063; 77067; 77080